=== PATIENT | male | born 1955 | race Caucasian/White ===

== ENCOUNTER 2016-10-17 14:48 | Emergency (ER) | payer OTHER ==
[~2016-10-17] VITALS: Ht 167.6 cm; Wt 88.5 kg
[~2016-10-17 14:48] MED LIST: ASPI325T4 PO; HYDR-3702 PO; NF-TORA10 PO; ONDA4TAB8 PO; ROSU40TA PO; TAMS-8 PO; [UNRECOGNIZED DRUG - REMARK]
[2016-10-17] MEDS ORDERED: LIDOCAINE 1% (XYLOCAINE) 20 ML VIAL INJ ONE (15:10)
[2016-10-17] MEDS ORDERED: TETANUS, DIPTHERIA, PERTUSSIS (ADACELL) VACCINE 0.5 ML VIAL IM ONE (15:15)
[2016-10-17] MEDS ORDERED: CEPH-331 PO (15:39)
[2016-10-17 15:40] VITALS: BP 156/76
[2016-10-17] MEDS ORDERED: BACITRACIN OINTMENT 0.9 GM PACKET TOP ONE (15:40)
--- NOTE | 2016-10-17 15:44 | NUR ---
pt requests tetanus shot in right hip, approved by er
--- NOTE | 2016-10-17 16:24 | Diagnostic Imaging Report ---
INDICATION: Laceration. COMPARISON: None available. TECHNIQUE: Three radiographs of the right hand second digit, dated October 17, 2016. FINDINGS: No acute fracture or dislocation. No destructive osseous process. No suspicious radiopaque foreign body. IMPRESSION: No acute osseous abnormality or suspicious radiopaque foreign body. Dictated by: Dictated on workstation # [id number]
== END 2016-10-17 16:00 | disposition home or self-care (01) ==
LOC: ED 14:49
DX: S61.210A Laceration without foreign body of right index finger without damage to nail, initial encounter (principal); W26.0XXA Contact with knife, initial encounter; Y92.513 Shop (commercial) as the place of occurrence of the external cause; Y99.0 Civilian activity done for income or pay
CPT/HCPCS: 12001; 90471; 90715; 99283